=== PATIENT | female | born 1955 ===

== ENCOUNTER → 2021-04-27 | Outpatient (CLI) | payer MEDICARE, OTHER | END | disposition home or self-care (01) | LOC: PLD 11:13 → LAB SHORT 11:13 | DX: D31.61 Benign neoplasm of unspecified site of right orbit (principal) | CPT/HCPCS: 88305 ==

== ENCOUNTER → 2022-04-06 | Outpatient (CLI) | payer MEDICARE | END | disposition home or self-care (01) | LOC: PLD 11:06 → LAB SHORT 11:06 | DX: L57.0 Actinic keratosis (principal); L81.4 Other melanin hyperpigmentation | CPT/HCPCS: 88305 ==

== ENCOUNTER → 2022-04-18 | Outpatient (CLI) | payer MEDICARE | END | disposition home or self-care (01) | LOC: PLD 08:03 → LAB SHORT 08:03 | DX: L72.0 Epidermal cyst (principal) | CPT/HCPCS: 88304 ==

== ENCOUNTER → 2022-06-27 | Outpatient (CLI) | payer MEDICARE | END | disposition home or self-care (01) | LOC: LAB SHORT 11:08 → PLD 11:08 | DX: L57.0 Actinic keratosis (principal) | CPT/HCPCS: 88305 ==